=== PATIENT | male | born 1990 | race Caucasian/White ===

== ENCOUNTER 2023-07-25 11:43 | Emergency (ER) | payer SELFPAY ==
[~2023-07-25] VITALS: Ht 175.3 cm; Wt 59.1 kg
[2023-07-25 12:01] VITALS: TEMP 97.7
[2023-07-25] MEDS ORDERED: Ondansetron 4 MG/2 ML VIAL IV PRN (13:45)
[2023-07-25] MEDS ORDERED: Pantoprazole 40 MG in NS 10 ML IV ONE (13:45)
[2023-07-25] MEDS ORDERED: NS 1,000 ML IV ONE (13:45)
[2023-07-25 14:13] LABS: HEMOGLOBIN 15.6 g/dl (13.5-18.0); MEAN CELL VOLUME 89 fl (80.0-100.0); MEAN CORPUSCULAR HEMOGLOBIN 32 pg (27-31); MEAN CORPUSCULAR HGB CONC 36 g/dl (33.0-37.0); MEAN PLATELET VOLUME 10.4 fl (7.4-10.4); PLATELET COUNT 229 K/mm3 (130-400); RED BLOOD COUNT 4.92 M/mm3 (4.20-5.60); REDCELL DISTRIBUTION WIDTH-CV 11.6 % (11.5-14.5)
[2023-07-25 14:35] LABS: ALBUMIN 3.8 g/dL (3.5-5.0); BILIRUBIN,TOTAL 0.7 mg/dL (0.2-1.2); CALCIUM 9.3 mg/dL (8.4-10.2); CREATININE, serum 0.85 mg/dL (0.72-1.25); POTASSIUM 3.9 mEq/L (3.5-4.5); TOTAL PROTEIN 6.3 g/dl (6.2-8.1)
[2023-07-25 14:59] LABS: BAND 5 % (0-10); LYMPHOCYTE 8 % (20.0-51.0); NEUTROPHILS 87 % (42.0-75.2); PLATELET ESTIMATE NORMAL (NORMAL)
[2023-07-25 16:02] VITALS: BP 104/64; PULSE 64
== END 2023-07-25 16:02 | disposition home or self-care (01) ==
LOC: COL.ER 11:43
PROVIDERS: Personal Emergency Response Attendant
DX: R11.2 Nausea with vomiting, unspecified (principal); R10.9 Unspecified abdominal pain
CPT/HCPCS: C9113; J2405; J7030